=== PATIENT | female | born 1960 | race African-American/Black ===

== ENCOUNTER 2017-10-03 21:01 | Emergency (ER) | payer OTHER ==
[~2017-10-03] VITALS: Ht 162.6 cm; Wt 82.0 kg
[2017-10-03 21:22] VITALS: BP 168/92
== END 2017-10-03 22:25 | disposition left against medical advice (07) ==
LOC: ER 21:12
DX: T40.991A Poisoning by other psychodysleptics [hallucinogens], accidental (unintentional), initial encounter (principal); F16.121 Hallucinogen abuse with intoxication with delirium; Y92.89 Other specified places as the place of occurrence of the external cause
CPT/HCPCS: 93005; 99283

== ENCOUNTER → 2018-12-08 | Emergency (ER) | payer MEDICAID, OTHER ==
[~2018-12-08] VITALS: Ht 167.6 cm; Wt 77.0 kg
[2018-12-08 17:24] VITALS: BP 189/107
== END ==
LOC: ER 17:21
DX: R00.0 Tachycardia, unspecified (principal); F16.10 Hallucinogen abuse, uncomplicated; R41.0 Disorientation, unspecified; E11.9 Type 2 diabetes mellitus without complications; I10 Essential (primary) hypertension
CPT/HCPCS: 99283

== ENCOUNTER 2019-03-27 01:40 | Emergency (ER) | payer MEDICAID ==
[~2019-03-27] VITALS: Ht 172.7 cm; Wt 79.0 kg
[2019-03-27 01:58] VITALS: BP 213/113
== END 2019-03-27 06:01 | disposition left against medical advice (07) ==
LOC: ER 02:20
DX: R68.89 Other general symptoms and signs (principal); Z53.21 Procedure and treatment not carried out due to patient leaving prior to being seen by health care provider